=== PATIENT | female | born 1990 | race Caucasian/White ===

== ENCOUNTER → 2019-11-08 17:33 | Outpatient (CLI) | payer OTHER, SELFPAY ==
[2019-11-08 13:32] VITALS: BMI 28.9
[2019-11-08 18:12] LABS: Amphetamine Urine VISTA NEGATIVE (<1000 ng/mL); Barbiturate Urine VISTA NEGATIVE (< 200 ng/mL); Benzodiazepine Urine VISTA NEGATIVE (< 200 ng/mL); Cocaine Urine VISTA NEGATIVE (< 300 ng/mL); Ecstacy Urine VISTA NEGATIVE (< 500 ng/mL); Methadone Urine VISTA NEGATIVE (< 300 ng/mL); PCP Urine VISTA NEGATIVE (< 25 ng/mL); THC Urine VISTA NEGATIVE (< 50 ng/mL); Vista UDS pH Range 6
[2019-11-08 21:10] LABS: Chlamydia Trachomatis by PCR Negative (Negative); Neisserai gonorrhoeae by PCR Negative (Negative); Probe Check PASS; Sample Adequacy Control PASS; Specimen Processing Control PASS
[2019-11-13 10:22] LABS: HPV Reflexed? NOT INDICATED
== END ==
PROVIDERS: PCP Physician Assistant Medical; Referring Provider Obstetrics & Gynecology; Visit Provider Obstetrics & Gynecology
DX: Z12.4 Encounter for screening for malignant neoplasm of cervix (principal); Z34.90 Encounter for supervision of normal pregnancy, unspecified, unspecified trimester
CPT/HCPCS: 80307; 87086; 87491; 87591; 88175; G0145

== ENCOUNTER → 2019-11-14 15:03 | Outpatient (CLI) | payer OTHER, SELFPAY ==
[2019-11-08 13:32] VITALS: BMI 28.9
[2019-11-14 15:30] LABS: Absolute Lymphocyte Count 2.53 X10^3/uL (0.83-4.51); Absolute Neutrophil Count 7.9 X10^3/uL (2.0-7.7); Basophil# 0.04 X10^3/uL; Basophil% 0.3 % (0-1); Eosinophil# 0.21 X10^3/uL; Eosinophils% 1.8 % (0-5); Hematocrit 38.7 % (37-47); Hemoglobin 12.7 g/dL (12.0-15.0); Lymphocyte # 2.53 X10^3/ul (4.0); Lymphocyte % 22.1 % (19-41); Mean Corp Hgb Conc 32.8 g/dL (32-36); Mean Corpuscular Hgb 28.8 pg (27.0-32.0); Mean Corpuscular Volume 87.8 fL (81-99); Mean Platelet Vol. 8.9 fl (6.2-12.0); Monocyte# 0.72 X10^3/uL; Monocyte% 6.3 % (0-10); NRBC Flagged by Analyzer 0 % (0-5); Neutrophil # 7.94 X10^3/uL (2.7-7.7); Neutrophil % 69.2 % (47-70); Platelet Count 302 K/mm3 (150-450); RBC Distribution Width CV 12.2 % (11.6-14.6); RBC Distribution Width SD 39.1 fl (35.1-43.9); Red Blood Count 4.41 M/mm3 (4.2-5.4); White Blood Count 11.5 K/mm3 (4.4-11.0)
[2019-11-14 16:09] LABS: NATERA MAILED SPECIMEN
[2019-11-15 00:26] LABS: Rapid Plasmin Reagin (RPR) NONREACTIVE (NONREACTIVE)
[2019-11-15 09:24] LABS: HIV - WCH Non-Reactive (Nonreactive); Hepatitis B Surface Antigen Non-Reactive (Nonreactive); Hepatitis C Antibody Non-Reactive (Nonreactive); Rubella IgG 46.2 IU/mL
== END ==
PROVIDERS: Obstetrics & Gynecology; PCP Physician Assistant Medical; Referring Provider Nurse Practitioner Women's Health; Visit Provider Nurse Practitioner Women's Health
DX: Z34.81 Encounter for supervision of other normal pregnancy, first trimester (principal)
CPT/HCPCS: 36415; 85025; 86592; 86703; 86762; 86803; 86850; 86900; 86901; 87340

== ENCOUNTER → 2020-03-21 12:04 | Outpatient (CLI) | payer OTHER, SELFPAY ==
[2020-02-29 15:08] VITALS: BMI 28.9
[2020-03-21 13:19] LABS: Absolute Lymphocyte Count 1.93 X10^3/uL (0.83-4.51); Absolute Neutrophil Count 8.9 X10^3/uL (2.0-7.7); Basophil# 0.04 X10^3/uL; Basophil% 0.3 % (0-1); Eosinophils% 1.7 % (0-5); Hematocrit 34.6 % (37-47); Hemoglobin 11.5 g/dL (12.0-15.0); Lymphocyte # 1.93 X10^3/ul (4.0); Lymphocyte % 16.4 % (19-41); Mean Corp Hgb Conc 33.2 g/dL (32-36); Mean Corpuscular Hgb 29.9 pg (27.0-32.0); Mean Corpuscular Volume 90.1 fL (81-99); Mean Platelet Vol. 9.5 fl (6.2-12.0); Monocyte# 0.61 X10^3/uL; Monocyte% 5.2 % (0-10); NRBC Flagged by Analyzer 0 % (0-5); Neutrophil % 75.8 % (47-70); Platelet Count 241 K/mm3 (150-450); RBC Distribution Width CV 12.8 % (11.6-14.6); RBC Distribution Width SD 41.4 fl (35.1-43.9); Red Blood Count 3.84 M/mm3 (4.2-5.4); White Blood Count 11.8 K/mm3 (4.4-11.0)
[2020-03-21 13:41] LABS: Glucose Challenge Gest 1H 50g 128 mg/dL (70-140)
== END ==
PROVIDERS: PCP Physician Assistant Medical; Referring Provider Obstetrics & Gynecology; Visit Provider Obstetrics & Gynecology
DX: Z34.90 Encounter for supervision of normal pregnancy, unspecified, unspecified trimester (principal)
CPT/HCPCS: 36415; 82950; 85025

== ENCOUNTER → 2020-05-16 16:46 | Outpatient (CLI) | payer OTHER, SELFPAY ==
[2020-05-16 15:24] VITALS: BMI 28.9
== END ==
PROVIDERS: PCP Physician Assistant Medical; Referring Provider Obstetrics & Gynecology; Visit Provider Obstetrics & Gynecology
DX: Z34.90 Encounter for supervision of normal pregnancy, unspecified, unspecified trimester (principal)
CPT/HCPCS: 87081

== ENCOUNTER → 2020-06-13 12:24 | Outpatient (CLI) | payer OTHER, SELFPAY ==
[2020-06-10 16:04] VITALS: BMI 28.9
--- NOTE | 2020-06-13 12:25 | US_ITS ---
STUDY: SECOND AND THIRD TRIMESTER OBSTETRICAL ULTRASOUND REASON FOR EXAM: Female, 29 years old post dates -- growth and BPP LMP: 09/01/2019. TECHNIQUE: Transabdominal TECHNICAL QUALITY: Adequate. PRIOR ULTRASOUND: None. FINDINGS: There is a single intrauterine fetus. The fetus is in a cephalic presentation. There is demonstrated cardiac activity with a heart rate of 147 bpm. There is a normal amniotic fluid volume. The largest amniotic fluid pocket measures 3.1 cm. The amniotic fluid index (MELISSA) is 9.8 cm. The placenta is fundal and posterior in location. There are Grade 2 placental changes. The cervix was not visualized due to the head positioning. The adnexal regions are not visualized. BIOMETRY: BPD: 9.1 cm: 37 weeks, 0 days HC: 35.2 cm: 40 weeks, 6 days AC: 37.7 cm: 41 weeks, 4 days FL: 8 cm: 40 weeks, 4 days CI: 75% FL/BPD: 87% FL/HC: FL/AC: 21% HC/AC: 0.93 age by current US: 40 weeks, 0 days. GINETTE by current US: 06/13/2020. Estimated weight: 4175 grams, +/- 618 grams, Age by LMP: 40 weeks, 6 days. GINETTE by LMP: 06/07/2020. IMPRESSION: Single live uterine gestation with mean gestational age of 40 weeks. Electronically Signed: Delroy Reyes, at 14:07 EDT , Service support , STUDY: OBSTETRICAL ULTRASOUND - BIOPHYSICAL PROFILE REASON FOR EXAM: Female, 29 years old post dates -- growth and BPP LMP: 09/01/2019. PRIOR ULTRASOUND: None. TECHNIQUE: Transabdominal TECHNICAL QUALITY: Adequate. FINDINGS: There is a single intrauterine fetus. The fetus is in a cephalic presentation. There is demonstrated cardiac activity with a heart rate of 147 bpm. There is a normal amniotic fluid volume. The largest amniotic fluid pocket measures 3.1 cm. The amniotic fluid index (MELISSA) is 9.8 cm. The placenta is fundal and posterior in location. There are Grade 0 placental changes. Age by LMP: 40 weeks, 6 days. GINETTE by LMP: 06/07/2020. age by current US: 40 weeks, 0 days. GINETTE by current US: Over 2019. BIOPHYSICAL PROFILE: Breathing Movements (FBM): 2 Gross Body Movements (GBM): 2 Tone (FT): 2 Amniotic Fluid Volume (AFV): 2 TOTAL SCORE: / US/OB Limited With Biometrics IMPRESSION: Normal biophysical profile of 04/19. Electronically Signed: Delroy Reyes, at 14:08 EDT , Service support ,
== END ==
PROVIDERS: PCP Physician Assistant Medical; Referring Provider Obstetrics & Gynecology; Visit Provider Obstetrics & Gynecology
DX: O48.0 Post-term pregnancy (principal)
CPT/HCPCS: 76816; 76819

== ENCOUNTER 2020-06-15 01:05 | Outpatient (CLI) | payer OTHER, SELFPAY ==
[2020-06-10 16:04] VITALS: BMI 28.9
[2020-06-15 01:18] VITALS: BP 132/89; PULSE 93
[2020-06-15 01:19] VITALS: TEMP 36.4; O2SAT 98
[2020-06-15 01:20] VITALS: BMI 34.4
--- NOTE | 2020-06-16 08:07 | OB.TRI.PN ---
Progress Notes Date of Service: 06/14/20 Progress Note: Patient presents for triage evaluation secondary to false labor FHT: 130 Moderate variability reactive no decelerations category I tracing Assumption: q 2-5 Contractions Assessment and plan: false labor Reactive NST, reassuring maternal and status patient discharged to home to follow-up as scheduled. See problem list details for additional plan information. Multi Select Codes - Urinary/Genital Urinary/Genital CPT Codes: 99038-13 non-stress test Interp
== END 2020-06-15 03:20 | disposition home or self-care (01) ==
LOC: WPOUT 01:11 → OBT 01:12
PROVIDERS: PCP Physician Assistant Medical; Referring Provider Obstetrics & Gynecology; Visit Provider Obstetrics & Gynecology
DX: O47.9 False labor, unspecified (principal); Z3A.00 Weeks of gestation of pregnancy not specified
CPT/HCPCS: 59025; 59050; 99218; G0378

== ENCOUNTER 2020-06-16 06:57 | Inpatient (IN) | payer OTHER, SELFPAY ==
[2020-06-15 01:20] VITALS: BMI 34.4
[2020-06-16] VITALS (55 sets, daily range): BP systolic 104–138; BP diastolic 56–88; PULSE 61–114; TEMP 36.1–37.5; O2SAT 83–100; BMI 33.0
[2020-06-16] MEDS: Lactated Ringers 1,000 ML 50 ML IV (07:20)
[2020-06-16 07:40] LABS: Absolute Lymphocyte Count 1.77 X10^3/uL (0.83-4.51); Absolute Neutrophil Count 12.2 X10^3/uL (2.0-7.7); Basophil# 0.06 X10^3/uL; Basophil% 0.4 % (0-1); Eosinophil# 0.24 X10^3/uL; Eosinophils% 1.6 % (0-5); Hematocrit 37.1 % (37-47); Hemoglobin 12.2 g/dL (12.0-15.0); Lymphocyte # 1.77 X10^3/ul (4.0); Lymphocyte % 11.6 % (19-41); Mean Corp Hgb Conc 32.9 g/dL (32-36); Mean Corpuscular Hgb 28.2 pg (27.0-32.0); Mean Corpuscular Volume 85.9 fL (81-99); Mean Platelet Vol. 10.1 fl (6.2-12.0); Monocyte# 0.92 X10^3/uL; NRBC Flagged by Analyzer 0 % (0-5); Neutrophil # 12.16 X10^3/uL (2.7-7.7); Neutrophil % 79.8 % (47-70); Platelet Count 244 K/mm3 (150-450); RBC Distribution Width CV 12.8 % (11.6-14.6); RBC Distribution Width SD 39.9 fl (35.1-43.9); Red Blood Count 4.32 M/mm3 (4.2-5.4); White Blood Count 15.2 K/mm3 (4.4-11.0)
--- NOTE | 2020-06-16 08:05 | HP.PCM_ITS ---
- Problem List (1) Influenza vaccination declined Status: Acute Comment: 05/16/2020sc (2) Post-dates Status: Acute Comment: patient wishes to proceed with exp management until 42 weeks. *plan US/NST tuesday, NST tuesday, and IOL by 42 if reassuring testing and no spontaneous labor (3) Status: Acute Qualifiers: Comment: declined carrier. NIPT low risk. ntd declined. 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 coli infection (Acute) Vertigo (Acute) Surgical History Previous back surgery (Acute ~2018) H/O thumb surgery (Resolved) Family History Grandfather Cancer CVA (cerebral vascular accident) Diabetes Father Hypertension Grandmother Diabetes Social History (Updated 06/10/20 @ 16:[address] Earline Goff MD) adopted: No household members: spouse housing: house current occupational status: employed current occupation: [employer] pets and animals: Yes history of recent travel: No sexually active: Yes Smoking Status: Current some day smoker second hand exposure: Yes alcohol intake: current alcohol intake frequency: holidays/special occasions only substance use type: does not use seatbelt use: always do you feel safe at home: Yes additional social history: Jey Gonzalez (Lory-13 Radha-10) Pregancy History 1 Elective abortions Hx Para Spontaneous abortions Hx # Term Pregnancies Ectopic pregnancies Hx # Pregnancies Multiple births # of living children HPI est ob 41w: Details: SHANIQUA HILL is a 29 year old who presents for routine OB visit. OB Visit GINETTE Calculator Estimated Delivery Date Method Current WG Current Estimate 06/07/20 Ultrasound #1 40w 3d Other Estimates 06/20/20 LMP (Certain) 38w 4d Expected Delivery Route/Plan Labor Preferences- CB/BF classes: planning BF class. labor support person: Wilver labor intervention preferences: no specific, wants all baseline interventions and standards of care no pacifiers or sweeties pain management options preferred: epidural cut cord/dad catch: yes : yes PP control planned: [] discussed possible routes of delivery and associated risks: discussed possible delivery modalities and possible indications for each including R/B/A of , VAVD, and CS. questions answered. special requests: denies Specific Issue/Plans flu vaccine: declined tdap vaccine: given 03/21 rhogam: na LARC form signed: declined movement and labor precautions reviewed. Problem list reviewed and updated with the most current plan of care details and appropriate orders placed. Relevant counseling for the gestational age provided. Continue routine care and follow up unless otherwise noted in visit notes/problem list details Initial Weight: 182 lb Date EGA Weight BP Urine Prot Glucose FHR FuHt Pres Dilation Effaced St Visit Note 12/05/19 13w 4d 184 lb 4 oz (+2 lb 4 oz) 122/80 Negative Negative 147 MH-no Vb, LOF. Some nausea but manageable. Reviewed PNL. 01/04/20 17w 6d 186 lb (+4 lb) 120/74 Negative Negative 140 18 SM- no vb lof crmaping, some fm. lost mother in law 1 week ago. grieving appropriately 02/29/20 25w 6d 198 lb (+16 lb) 116/78 Negative Negative 140 26 SM- no vb lof good fm no regular ctx 03/21/20 28w 6d 197 lb (+15 lb) 120/70 Negative Negative 140 28 SM- no vb lof good fm no regular ctx. cbc gct tdap today 04/04/20 30w 6d 204 lb (+22 lb) 112/80 Negative Negative 140 30 SM- no vb lof good fm no regular ctx 04/18/20 32w 6d 202 lb 2 oz (+20 lb 2 oz) 128/74 135 33 SM- no vb lof good fm no regular ctx 05/02/20 34w 6d 204 lb 8 oz (+22 lb 8 oz) 114/72 Negative Negative 135 35 Cephalic Sm- no vb lof good fm no regular ctx 05/16/20 36w 6d 206 lb (+24 lb) 120/74 Negative Negative 135 36 Cephalic 1.5 40 -3 SM- no vb lof good fm no regular ctx gbs today 05/23/20 37w 6d 206 lb (+24 lb) 126/74 135 37 Cephalic 1.5 50 -2 Sm- no vb lof decreased f etal movement the last two days. check nst today 05/30/20 38w 6d 205 lb 8 oz (+23 lb 8 oz) 128/88 Negative Negative 135 38 Cephalic 2 50 -2 GP - no LOF, VB, DFM, ctx . Discussed routes of delivery. 06/04/20 39w 4d 206 lb 8 oz (+24 lb 8 oz) 130/88 Negative Negative 130 39 Cephalic 2.5 50 -2 GP - No LOF, VB, DFM. irr egular ctx. Membranes stripped today. 06/10/20 40w 3d 209 lb (+27 lb) 129/80 135 39 Cephalic 2.5 50 -2 SM- no vb lof good fm no regular ctx discussed IOL vs exp management, wishes to proceed with exp management if reassuring testing ACOG First Trimester First Trimester: Desire for , Alcohol, Tobacco Cessation, Illicit/Recreational Drug/Substance Use, Intimate Partner Violence, Barriers to care, Unstable Housing, Communication Barriers, Environmental/Work Hazards, Anticipated Course of Care, Toxoplasmosis Precations, Use of Any medications, Sexual activity, Exercise, Dental Care, Sauna/Hot tub use, Seat Belt use, Childbirth classes/Hospital facilities, , Travel, Indications for US and Screening for Aneuploidy Second Trimester Second Trimester: Signs and Symptoms of Labor, Selecting a care provider, Reproductive Life Planning, Care Planning, Tobacco Cessation, Depression/Anxiety and Intimate Partner Violence Third Trimester Third Trimester: Pain Management Plans, Labor support person(s), Immediate Larc, Movement Monitoring and Feeding Yes ; discussed Trial of Labor after Counseling or discussed Circumcision preference Diagnostics Diagnostics Diagnostics Glucose 1 Hr 50 gm 128 mg/dL (70-140) 03/21/20 Hgb 11.5 g/dL (12.0-15.0) L 03/21/20 Hct 34.6 % (37-47) L 03/21/20 Details: HIV: Urine Culture: Sequential Screen: NIPT Screen: ROS Const Reports system reviewed and no additional complaints, except as docu Card Reports system reviewed and no additional complaints, except as docu Resp Reports system reviewed and no additional complaints, except as docu GI Reports system reviewed and no additional complaints, except as docu, Reports nausea Reports system reviewed and no additional complaints, except as docu Musc Reports system reviewed and no additional complaints, except as docu Exam Const General: cooperative, healthy appearing, comfortable, anxious HENMT Head: normal to inspection Nose: external nose normal Face and sinus: normal facial exam Neck Neck: normal visual inspection, full ROM, no lymphadenopathy Thyroid: thyroid normal Chest Chest palpation & inspection: normal inspection of the chest Resp Effort & Inspection: normal respiratory effort GI Inspection: normal to inspection Palpation: soft, other (gravid uterus) Other: vertex and appropriate size for gestational age Other: Cervical Exam: Extrem General: pedal edema Assessment & Plan Problems 1. Influenza vaccination declined Z28.21 05/16/2020sc 2. Supervision of normal first Z34.00 PRR GINETTE: 06/07/2020 giorgi Mcmahan BF: Wilver (Lory-13 Radha-10) 3. Z34.90 declined carrier. NIPT low risk. ntd declined. Anatomy normal 4. Post-dates O48.0. patient wishes to proceed with exp management until 42 weeks. *plan US/NST tuesday, NST tuesday, and IOL by 42 if reassuring testing and no spontaneous labor Orders Orders: POC Urinalysis 2 Dip (Clinic) Today OB Limited With Biometrics Today O48.0 Coding Level of Care Code OB Routine Diagnoses Influenza vaccination declined Z28.21 Supervision of normal first Z34.00 Z34.90 Post-dates O48.0 Patient presents IAL, plan expectant management for , pitocin/AROM PRN if needed. Pain management: plans epidural. GBS negative. Management of any complications: none Rubella immune Blood type A+ I have reviewed the [facility] and made any clinically relevant updates. Teresa Macedo M.D.
[2020-06-16] MEDS: 0.9% Saline Lock 10 ML Syringe IV ×2 (10:54→11:40)
[2020-06-16] MEDS: Lactated Ringers 500 ML 999 ML IV ×3 (11:40→19:24)
[2020-06-16] MEDS: fentaNYL-bupivacaine (epidural) 100 ML BAG EPIDURAL ×3 (12:36→21:51)
[2020-06-16] MEDS: Oxytocin 30 units/NS 500 ml 30 UNITS/500 ML IV.SOLN IV (16:21)
[2020-06-16] MEDS: Lactated Ringers 1,000 ML 200 ML IV ×2 (16:24→21:51)
[2020-06-16] MEDS: Ondansetron 4 MG/2 ML Vial IV (19:18)
[2020-06-16] MEDS: Mag Hydrox/Al Hydrox/Simeth 30 ML UDC PO (22:16)
[2020-06-17] VITALS (37 sets, daily range): BP systolic 90–134; BP diastolic 54–85; PULSE 48–102; RESP 15–18; TEMP 36.3–38; O2SAT 18–100
[2020-06-17] MEDS: DiphenhydrAMINE 25 MG Capsule PO (01:28)
[2020-06-17] MEDS: Acetaminophen 500 MG Tablet 1000 MG PO (01:28)
[2020-06-17] MEDS: fentaNYL-bupivacaine (epidural) 100 ML BAG EPIDURAL (02:31)
[2020-06-17] MEDS: Lactated Ringers 1,000 ML 200 ML IV (03:24)
[2020-06-17] MEDS: Oxytocin 30 units/NS 500 ml 30 UNITS/500 ML IV.SOLN 334 UNITS IV (07:02)
--- NOTE | 2020-06-17 07:18 | PCM.OPRPT ---
Problem List (1) Influenza vaccination declined Status: Acute Comment: 05/16/2020sc (2) Post-dates Status: Acute Comment: patient wishes to proceed with exp management until 42 weeks. *plan US/NST tuesday, NST tuesday, and IOL by 42 if reassuring testing and no spontaneous labor (3) Status: Acute Qualifiers: Comment: declined carrier. NIPT low risk. ntd declined. Anatomy normal (4) Supervision of normal first Status: Acute Qualifiers: Comment: PRR GINETTE: 06/07/2020 giorgi Mcmahan BF: Wilver (Lory-13 Radha-10) Vaginal Delivery Maternal Presentation: Active Labor Patient is a 29-year-old at 41 weeks gestation who was admitted in active labor. She required augmentation with rupture of membranes and Pitocin. After 24 hours in labor, she made cervical change to complete dilation. Amniotic Membrane Rupture Type: Artificial Rupture of Membrane time: 1300 Amniotic Fluid Description: Clear Final GINETTE: 06/07/20 Gestational age: 41 Weeks and 3 Days Date of Procedure: 06/17/20 Pre-Operative Diagnosis: Active labor, Suspected III Post-Operative Diagnosis: same Surgery/ Procedure Performed: Spontaneous Vaginal Delivery Type of Anesthesia: Epidural Description of Procedure: Patient began pushing and delivered the head in the VENECIA presentation. The head was delivered atraumatically. No nuchal cord was noted. The anterior and posterior shoulders delivered without complication followed by the rest of the and the infant was placed on the maternal abdomen. Delayed cord clamping was employed for approximately 60 seconds. Cord was clamped and cut and gentle traction was applied to the cord and the placenta delivered spontaneously immediately following it was noted to be intact with three-vessel cord. The perineum and vagina were inspected and a first-degree laceration was noted and repaired in a running fashion using 3-0 Vicryl repeat suture. EBL was 200 cc. Patient and infant tolerated delivery well. Presentation: VENECIA Placental Delivery Description: Spontaneous Placenta Disposition: [facility] Cord Vessel Description: 3 Vessels Cord Entanglement: None Drain: Quintero to straight drain Estimated Blood Loss: 200 cc Infant A gender: Male Episiotomy Description: None Laceration: Perineal Extension/lac, 1st degree Medications given after delivery: IV Pitocin Complications: None Multi Select Codes - Urinary/Genital Urinary/Genital CPT Codes: 71587 Vaginal Delivery [facility]
--- NOTE | 2020-06-17 09:01 | PLAC_PTH ---
PATIENT: SHANIQUA HILL LOC: WP U#:[id number] AGE/SX: 29/F ROOM: WP005 RE06/16/[address]: Dr. Teresa Macedo MD : 1990 BED: 1 DIS: 06/18/2020 SPEC #: [id number] RECD: 06/17/20 09:25 STATUS: VALE JESUS #: [id number] KIET: 06/17/20 09:[address]: Teresa Macedo DEPT: SURGICAL PATHOLOGY RECD BY: Kacie Steward ENTERED: 06/17/20 09:26 SP TYPE: PLACENTA OTHR DR: OLIMPIA Cerda Tissues: Placenta, NOS Procedures: Surgery Specimen Level V HEADER OPERATION: Vaginal delivery PRE-OP DIAGNOSIS: Labor TISSUE SUBMITTED: Placenta MICROSCOPIC DIAGNOSIS Nuñez placenta (677 gm): Umbilical cord - trivascular with acute funisitis. Placental membranes - acute chorioamnionitis and acute deciduitis. Placental disc - acute vasculitis of superficial placental vessels, increased intraparenchymal fibrin plaques and microcalcifications. AM:kalen 06/19/20 MICROSCOPIC DESCRIPTION Slides are reviewed. GROSS DESCRIPTION SPECIMEN: PLACENTA / CLINICAL INFORMATION: A. Weight: 4.14 kg B. Gestational Age: 41 weeks C. Sex: Male PLACENTAL WEIGHT (POST FIXATION): 677 gm PLACENTAL DIMENSIONS: 19.5 x 17.5 x 3 cm PLACENTAL SHAPE: Usual ovoid PLACENTAL WEIGHT FOR GESTATIONAL AGE: Over 99th percentile MEMBRANES - Present A. Insertion: Marginal B. Site of rupture from edge: 4 cm from edge of placental disc C. Color of membrane: Donis-landeros D. Abnormalities: None UMBILICAL CORD - Present A. Color: Donis-landeros B. Insertion: Eccentric C. Length: 25 cm D. Diameter: 1.5 cm E. Number of vessels: Three F. Abnormalities: None PLACENTAL DISC - Present A. Color of surface: Donis-landeros B. surface abnormalities: None C. Maternal cotyledons: Intact with minimal tears D. Attached retro placental clot: No clot E. Cut surface: Dark red and spongy F. Lesions: None G. Separate clot: Absent SECTIONS SUBMITTED: 1. Umbilical cord ( end notched) 2. Umbilical cord, placental end 3. Membrane roll 4. Placental disc, and maternal surfaces 5. Placental disc, and maternal surfaces 6. Placental disc, and maternal surfaces AM:kalen 06/18/20 TC:2 CPT: 18525
[2020-06-17] MEDS: Ibuprofen 600 MG Tablet PO ×2 (16:24→23:06)
[2020-06-18 04:45] VITALS: BP 107/60; PULSE 59; RESP 16; TEMP 36.3
[2020-06-18] MEDS: Ibuprofen 600 MG Tablet PO (06:30)
--- NOTE | 2020-06-18 07:23 | PCM.PN.OB ---
Subjective: Patient doing well without complaints. Tolerating PO. Ambulating and voiding without difficulty. Breast feeding well. Denies chest pain, shortness of breath, calf pain/swelling, fevers, chills, lightheadedness. - Physical Exam Vitals/I&O's: Vital Signs Temp Pulse Resp BP Pulse Ox 97.3 F L 59 L 16 107/60 96 06/18/20 04:45 06/18/20 04:45 06/18/20 04:45 06/18/20 04:45 06/17/20 23:01 Oxygen Delivery Method Room Air Weight: 208 lb Body Mass Index (BMI) 33.0 Intake and Output for Last 24 Hours 06/16/20 06/17/20 06/18/20 23:59 23:59 23:59 Intake Total 4167.01 / 4167.01 2659.02 / 2659.02 Output Total 1800 / 1800 1999 Balance 2367.01 / 2367.01 659.02 / 659.02 General: Alert, Oriented x3, Cooperative HEENT: Atraumatic, PERRLA, EOMI, Normocephalic Oral: Moist Mucosa Neck: Supple, No JVD, Negative Carotid Bruits Lungs: Clear to auscultation, Normal air movement Cardiovascular: Regular rate, No murmurs Abdomen: Bowel Sounds Present, Soft, Non Tender Extremities: No edema, Capillary Refill Less than 3 Seconds, No Calf Tenderness Skin: No rashes, No breakdown Neurological: Cranial nerves II-XII grossly intact, Neuro grossly intact Psych/Mental Status: Normal Affect, Appropriate Current Medications Acetaminophen (Tylenol) 1,000 mg PO Q8H PRN PRN PRN Reason: Pain Score 1-3/10 Bisacodyl (Dulcolax) 10 mg RECTAL UD PRN PRN Reason: If no BM Dibucaine (Dibucaine) 1 applic TOPICAL TID PRN PRN; Protocol PRN Reason: Discomfort Hydrocortisone (Hytone) 1 applic TOPICAL TID PRN PRN; Protocol PRN Reason: Discomfort Ibuprofen (Motrin) 600 mg PO Q6H PRN PRN PRN Reason: Pain Score 1-3/10 Last Admin: 06/18/20 06:30 Dose: 600 mg Documented by: Methylergonovine Maleate (Methergine) 0.2 mg IM X1 PRN PRN Reason: Excess bleeding/uterine atony Ondansetron HCl (Zofran) 4 mg IV Q4H PRN PRN PRN Reason: Nausea Oxycodone HCl (Oxyir) 5 - 10 mg PO Q4H PRN PRN PRN Reason: Pain Score 4-10/10 Senna/Docusate Sodium (Senokot-S, Tigist-Colace) 1 - 2 tablet PO DAILY PRN PRN PRN Reason: Constipation Simethicone (Mylicon) 80 mg PO PCHS PRN PRN Reason: Indigestion/Stomach pain Last Admin: 06/17/20 16:24 Dose: 80 mg Documented by: Sodium Chloride () 5 - 15 ml IV UD PRN PRN Reason: SALINE FLUSH Medical Necessity - Tobacco Use Smoking Status: Never smoker Assessment/Plan All Active Problems (Last Reviewed 06/10/20 @ 16:04 by Rosalia Salazar) Post-dates (Acute) Influenza vaccination declined (Acute) Supervision of normal first (Acute) (Acute) s/p PPD #1 1. routine post delivery care 2. breast feeding- support given 3. rh positive 4. rubella immune
[2020-06-18 08:29] VITALS: BP 137/76; PULSE 96; RESP 14; TEMP 36.8
--- NOTE | 2020-06-18 11:13 | NURSING ---
Circumcision care taught to mother and father, both verbalized understanding
[2020-06-19 14:50] LABS: Pathology Specimen OB SEE PATHOLOGY REPORT
== END 2020-06-18 14:05 | disposition home or self-care (01) | DRG 807 ==
LOC: WPOUT 06:57 → WP 06:57
PROVIDERS: Pediatrics; Admitting Provider Obstetrics & Gynecology; PCP Physician Assistant Medical; Referring Provider Obstetrics & Gynecology; Visit Provider Obstetrics & Gynecology
DX: O48.0 Post-term pregnancy (principal); O70.0 First degree perineal laceration during delivery; O99.334 Smoking (tobacco) complicating childbirth; F17.200 Nicotine dependence, unspecified, uncomplicated; Z28.21 Immunization not carried out because of patient refusal; Z3A.41 41 weeks gestation of pregnancy; Z37.0 Single live birth
CPT/HCPCS: 59025; 59050; 85025; 86850; 86900; 86901; 88307; 99218; J7120; 90686; A4216; G0378; J2405

== ENCOUNTER 2020-10-14 05:55 | Day surgery (SDC) | payer OTHER, SELFPAY ==
[2020-10-02 09:48] VITALS: BMI 28.6
--- NOTE | 2020-10-13 10:54 | EKG12_ITS ---
Test Reason : PRE OP Blood Pressure : / mmHG Vent. Rate : 056 BPM Atrial Rate : 056 BPM P-R Int : 164 ms QRS Dur : 096 ms QT Int : 402 ms P-R-T Axes : 047 002 008 degrees QTc Int : 387 ms Sinus bradycardia with marked sinus arrhythmia Otherwise normal ECG Confirmed by YESENIA ALVARADO, MAKAYLA ([id number]), editor city [place] CAPELLAN ([id number]) on 10/14/2020 8:37:55 AM Referred By: Miguel Dietz Confirmed By:MAKAYLA PATTERSON MD
[2020-10-14] VITALS (7 sets, daily range): BP systolic 123–139; BP diastolic 67–82; PULSE 54–84; RESP 14–18; TEMP 35.7–36.7; O2SAT 95–100; BMI 30.3
[2020-10-14 06:19] LABS: Internal QC Validated? YES +Cl - CLEAR BKGD; Pregnancy, Urine Negative Negative
[2020-10-14] MEDS: Lactated Ringers 1,000 ML 100 ML IV ×2 (06:40→08:50)
--- NOTE | 2020-10-14 06:54 | HP_ITS ---
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 coli infection (Acute) Surgical History Previous back surgery (Acute ~2018) H/O thumb surgery (Resolved) Family History Grandfather Cancer CVA (cerebral vascular accident) Diabetes Father Hypertension Grandmother Diabetes Social History (Updated 10/03/20 @ 15:[address] Miguel Dietz MD) adopted: No household members: spouse housing: house current occupational status: employed current occupation: [employer] pets and animals: Yes history of recent travel: No sexually active: Yes Smoking Status: Never smoker second hand exposure: Yes alcohol intake: current alcohol intake frequency: holidays/special occasions only substance use type: does not use seatbelt use: always do you feel safe at home: Yes additional social history: Jey Gonzalez (Lory-13 Radha-10) HPI HPI HPI: SHANIQUA HILL, is a 30 F who presents to the office today for HPI HPI Surgical H&P: Yes HPI: SHANIQUA HILL, is a 30 F who presents to the office today for right upper quadrant pain. The patient reports that she has right upper quadrant pain after eating associated with nausea and it radiates to the back into the right shoulder. The patient does not have any nausea or vomiting at this time but she says that after eating she occasionally has nausea. She has no fevers or chills. ROS General General: No weight change, appetite, fatigue, colon cancer, breast cancer or weakness HEENT HEENT: No difficulty swallowing, eye injury, eye surgery, swollen glands or hoarseness Endo Endocrine: No thyroid disease, diabetes mellitus, thyroid cancer, Hair loss, heat intolerance or cold intolerance Skin Skin: No rash or changing moles Musc Musculoskeletal: No back problems, arthritis, rheumatoid arthritis, gout or joint pain Cardio Cardiovascular: No murmur, pacemaker, heart disease, atrial fibrillation, high blood pressure, heart attack, heart stent, palpitations, shortness of breat with exertion or chest pain Psych Psychiatric: No depression, anxiety or hearing voices Resp Respiratory: No shortness of breath, No sleep apnea, No cough, No COPD, No asthma, No emphysema, No wheezing Gastro Gastrointestinal: Yes abdominal pain, Yes nausea or vomiting, Yes diarrhea, No constipation, No blood in stool, No acid reflux, No hemorrhoids, No ulcers, Yes gallbladder problem, No black,tarry stools Steve Hematologic: No blood thinners, No blood disorders, No bleeding, No anemia, No blood clots Neuro Neurologic: No system reviewed and no additional complaints, except as docu, No as per HPI, No abnormal walking, No abnormal hearing, No abnormal movements, No abnormal speech, No behavioral changes, No burning sensations, No confusion, No seizure-like activity, No unsteadiness, No dizziness, No localized weakness, No frequent falls, No headache(s), No lack of coordination, No loss of vision, No memory loss, No numbness, No other visual disturbances, No radiating pain, No restless legs, No sensory deficit, No fainting, No tingling, No tremor(s), No weakness, No other Exam Const General: cooperative Orientation: alert, oriented x3 HENMT Head: normal to inspection Ears: hearing grossly normal bilaterally Eyes General: appearance normal, both eyes and all related structures Visual Meek: normal visual meek by confrontation Neck Neck: normal visual inspection Chest Chest palpation & inspection: normal inspection of the chest Resp Effort & Inspection: normal respiratory effort Auscultation: clear to auscultation bilaterally Cardio Rate: regular rate Rhythm: regular rhythm Heart Sounds: no murmurs GI Inspection: non-distended Palpation: soft, nontender Musc Cervical Spine: normal cervical lordosis, cervical ROM normal Skin General: no rashes or lesions noted Neuro General: alert, oriented x3 Cranial Nerves: CN's II-XI intact bilaterally Cognition: normal cognition Extrem General: normal to inspection, full ROM Psych Appearance: grossly normal Affect: normal affect Assessment & Plan Problems 1. Biliary dyskinesia K82.8 Plan The patient had ultrasound which showed no gallstones but she did have a HIDA scan which showed biliary dyskinesia with an ejection fraction of 5%. The patient's symptoms are suggestive of biliary colic and biliary dyskinesia. I did recommend laparoscopic cholecystectomy. I discussed the procedure in detail with the patient. I discussed the risks, benefits, and alternatives of the procedure. I discussed the risks including but not limited to bleeding, infection, injury to surrounding organs such as the liver, bile duct, bowels. I did discuss the possibility of having to convert to an open procedure as well as the possibility that if any injuries occurred this may necessitate further surgery at a tertiary care center. We discussed the current risks associated with COVID-19. While it is understood that there is a community spread of COVID-19, the risk of saba COVID-19 while at [facility] ([facility]) is very low; however, the risk cannot be completely mitigated because of the community spread of the disease. We discussed in detail the risk of exposure to and/or potential harm posed by the COVID-19 virus with having a surgery/procedure at this time versus the risk of delaying the surgery/procedure. It is not possible to know either the risk of delaying the surgery or procedure or chance of getting an infection with perfect accuracy, but a joint decision was made to proceed at this time with the scheduled surgery/procedure as indicated on the consent form. Patient was notified that we will need to comply with any screening or testing [facility] wishes to perform or that surgery may be delayed for any positive results. Miguel Dietz MD Pager: [facility] [address] [place] [address], [address] [place] [address] Office: Coding Level of Care Code Off vis,new,level 4 Diagnoses Biliary dyskinesia K82.8 I have re-examined the patient. There are no clinical changes since date of exam.
--- NOTE | 2020-10-14 07:25 | RAD_ITS ---
STUDY: INTRAOPERATIVE INTRA CHOLANGIOGRAM. REASON FOR EXAM: Female, 30 years old. ABD PAIN FLUOROSCOPY TIME (if supplied): ( 12.4 seconds ) minutes/seconds. A cine loop of 49 images were submitted. TECHNIQUE: Intraoperative cholangiogram was performed by the surgeon. Imaging was submitted. COMPARISON: None. FINDINGS: The visualized intrahepatic biliary ducts are unremarkable. The common bile duct is not dilated. No intraluminal filling defect is seen. There is free flow of contrast into the duodenum. RAD/Cholangiogram/ O R,Initial IMPRESSION: Unremarkable intraoperative cholangiogram. Electronically Signed: Delroy Reyes MD at 9:08 EST , Service support ,
[2020-10-14] MEDS: Cefotetan 2 GM in 0.9% NS 100 ML IV (07:28)
--- NOTE | 2020-10-14 07:30 | GALL_PTH ---
PATIENT: SHANIQU[place] [facility] [id number] AGE/SX: 30/F ROOM: RE10/14/[address]: Dr. Miguel Dietz MD : 1990 BED: DIS: 10/14/2020 SPEC #: [id number] RECD: 10/14/20 09:31 STATUS: VALE REKisha #: [id number] KIET: 10/14/20 07:[address]: Miguel Dietz DEPT: SURGICAL PATHOLOGY RECD BY: Sondra Bhakta ENTERED: 10/14/20 11:01 SP TYPE: WENDY LOGAN DR: OLIMPIA Cerda Tissues: Gallbladder, NOS Procedures: Surgery Specimen Level III HEADER OPERATION: Laparoscopic cholecystectomy with IOC PRE-OP DIAGNOSIS: Biliary dyskinesia TISSUE SUBMITTED: Gallbladder MICROSCOPIC DIAGNOSIS Gallbladder, cholecystectomy: Cholesterolosis and chronic cholecystitis. AM:kalen 10/15/2020 MICROSCOPIC DESCRIPTION Slides are reviewed. GROSS DESCRIPTION Received is one container labeled with the patient's name and designated gallbladder. The specimen consists of a gallbladder measuring 8.5 x 3 x 3 cm. The external surface is smooth and glistening. Focally, it is granular, hemorrhagic and contains cautery artifact. The lumen of the gallbladder contains yellow-green mucoid bile and no calculi. The mucosa is bile-stained and without any mass lesions. The gallbladder wall averages 0.1 cm in thickness and is free of mass lesions. Plate Maker sections of the gallbladder and the cystic duct at margin of resection are submitted in one cassette. / AM:kalen 10/14/20 TC:3 CPT: 94654
--- NOTE | 2020-10-14 08:32 | OP.PCM_ITS ---
Problem List (1) Biliary dyskinesia Status: Acute Report of Operation Date of Procedure: 10/14/20 Pre-Operative Diagnosis: Biliary dyskinesia Post-Operative Diagnosis: Same Surgery/Procedure Performed:: Laparoscopic cholecystectomy with cholangiogram Specimen's removed: Gallbladder and contents Description of Procedure: After obtaining informed consent patient was brought back to the operating room. General anesthesia was induced. The abdomen was prepped and draped in usual sterile fashion. A small midline incision was made superior to the umbilicus and deepened to the level of fascia. The fascia was elevated and incised. Next the peritoneum was elevated and incised in the same fashion. Finger sweep was performed and the Henao trocar was placed into the abdomen. The balloon was inflated. The abdomen was inflated to 15 mmHg. Next a camera was introduced into the abdomen and the abdomen was inspected. Next under direct visualization three 5-mm ports were placed one subxiphoid and 2 subcostal. Next the gallbladder was elevated and retracted toward the right shoulder. The peritoneum was stripped from the gallbladder. The infundibulum was located and retracted laterally. Next the triangle of Calot was dissected and the cystic duct and cystic artery were identified. Cholangiograms were performed. The Magallanes clamp was used to clamp across the infundibulum and the catheter needle was inserted into the gallbladder. Under fluoroscopy contrast was instilled into the gallbladder and the common duct, cystic duct as well as proximal hep atic ducts were identified. There was good filling of the duodenum. There were no filling defects noted in the common bile duct. The clamp was removed as well as the needle and the infundibulum was grasped once more. Three hemolock clips were placed across the cystic duct. The cystic duct was then divided leaving 2 clips on the stump. The cystic artery was clipped and divided in the same [facility] ion. The hook cautery was then used to take the gallbladder off of the gallbladder bed. Hemostasis was obtained. Gallbladder fossa was irrigated and no active bleeding or bile leakage was noted. Next the camera was introduced in the subxiphoid port. An Endopouch bag was placed through the umbilical port and the gallbladder was placed into it. The gallbladder was then removed through the umbilical incision. The camera was then reinserted through the umbilical port. The gallbladder fossa was inspected once more and noted to be hemostatic with no leaking bile. The abdomen was suctioned dry. The 5 mm ports were removed under direct visualization. The umbilical port was then removed and the air was removed from the abdomen. Next using an 0 Vicryl suture the umbilical fascia was closed in a [id number] fashion. The umbilical port site was irrigated local anesthetic was administered to all the incisions. All the incisions were closed with interrupted subcuticular 4-0 Monocryl sutures followed by Steri-Strips and dressings. The patient was awoken and taken to PACU in stable condition. - Admit VTE Documentation VTE Mechan Device Prophylaxis: SCD's
--- NOTE | 2020-10-14 08:34 | DCINST_ITS ---
Discharge Diet: Light diet - advance as tolerated Discharge Activity: Return to Normal Activity, May Not Drive - for 2-3 days or while taking narcotic pain medicataions., - - Do not drive, work heavy equipment or sign legal documents for 24 hours. May shower in (days): 1 - with the bandage in place. Lifting Restrictions: 20 lbs for 2 weeks Additional Activity Instructions:: Pain medication may cause nausea. You should typically eat light foods as you take your pain medications. Pain medication may also cause constipation. If this is a problem for you, please discuss with your doctor. Call your doctor if your incision/area has: Continuous Slow Oozing, Sudden Increased Bleeding, Increased Pain/ Swelling, Increased Redness, Foul Smelling Discharge, Fever of 101 or Higher Call your doctor if you observe: Fever of 101 or Higher Suture Line Care: Avoid Pulling/Pushing, Avoid Pinching/Bending Additional Dressing/Incision Instructions:: Leave operative bandaids on for 2 days. When you remove dressing, leave Steri-Strips on until your follow-up appointment, or until the Steri-Strips fall off on their own. Allergies/Adverse Reactions: Allergies No Known Allergies Allergy (Verified 10/02/20 09:47) Medications to take at Discharge vit,calcium no.40-iron fum 27 mg iron-folate no.1 1 mg tablet 1 tab PO DAILY 11/08/19 Oxycodone HCl/Acetaminophen [Percocet 5-325 mg Tablet] 1 - 2 tab PO Q6H PRN PRN 5 Days #30 tablet 10/14/20 The following prescriptions were given: Oxycodone HCl/Acetaminophen [Percocet 5-325 mg Tablet] 1 - 2 tab PO Q6H PRN PRN 5 Days #30 tablet PRN Reason: Pain Score 4-10/10 Transmission Status: Sent to [facility] Primary Care Physician: Kailee Mahmood PA [Primary Care Provider] - Test Results: Test results from this visit will be discussed in further detail at your follow- up appointment, if applicable. Please Follow Up With: Miguel Dietz MD When: Please call to schedule 2 week follow up appointment. [phone]
[2020-10-14] MEDS: oxyCODONE 5 MG Tablet PO (09:20)
== END 2020-10-14 11:12 | disposition home or self-care (01) ==
LOC: SDC 05:56 → AC 05:56
PROVIDERS: Anesthesiology; PCP Physician Assistant Medical; Referring Provider Surgery; Visit Provider Surgery
PROC: (CPT 47610; principal; 2020-10-14 07:10)
DX: K81.1 Chronic cholecystitis (principal); K82.8 Other specified diseases of gallbladder
CPT/HCPCS: 00790; 47563; 74300; 76000; 81025; 87426; 88304; 93005; C9803; J7120; J2405

== ENCOUNTER 2020-11-03 09:25 | Emergency (ER) | payer OTHER, SELFPAY ==
[2020-10-14 06:18] VITALS: BMI 30.3
[2020-11-03 09:27] VITALS: BP 151/100; PULSE 76; RESP 18; TEMP 35.5; O2SAT 100; BMI 30.9
--- NOTE | 2020-11-03 09:41 | CT_ITS ---
STUDY: CT BRAIN WITHOUT CONTRAST REASON FOR EXAM: Female, 30 years old. HEADACHE, VISION CHANGES, NECK PAIN, ARM TINGLING RADIATION DOSAGE (If Supplied By Facility): CTDIvol = ( 44.99 ) mGy, DLP = ( 779.24 ) mGycm TECHNIQUE: Transaxial CT imaging of the brain was performed without administration of intravenous contrast material. Individualized dose optimization techniques were used for this CT. COMPARISON: No relevant priors. FINDINGS: Normal soft tissue structures. Normal calvarium. Normal size ventricles and extra-axial spaces for the patient''s age. Normal white matter tracts of the cerebral hemispheres. Normal basal ganglia and thalami. Normal brainstem. Normal cerebellum. There is no intracranial hemorrhage. There are no findings of an acute ischemic infarction. Normal visualized paranasal sinuses. CT/Brain/Head without Contrast IMPRESSION: Normal unenhanced CT scan of the brain. Electronically Signed: Edmund Aldana MD at 10:18 EST Tel , Service support ,
--- NOTE | 2020-11-03 09:41 | CT_ITS ---
STUDY: CT CERVICAL SPINE WITHOUT CONTRAST REASON FOR EXAM: Female, 30 years old. HEADACHE, VISION CHANGES, NECK PAIN, ARM TINGLING RADIATION DOSAGE (If Supplied By Facility): CTDIvol = ( 27.12 ) mGy, DLP = ( 567.29 ) mGycm TECHNIQUE: High resolution transaxial imaging was performed without contrast material. Sagittal and coronal images were reconstructed. Individualized dose optimization techniques were used for this CT. COMPARISON: None FINDINGS: Normal craniovertebral junction. Normal anterior atlantoaxial articulation. Normal odontoid process. There is straightening of the normal cervical lordosis. Normal vertebral bodies and posterior osseous elements. C2-3: Normal endplates. Normal disc height and morphology. Normal central canal and intervertebral neuroforamina. C3-4: Normal endplates. Normal disc height and morphology. Normal central canal and intervertebral neuroforamina. C4-5: Normal endplates. Normal disc height and morphology. Normal central canal and intervertebral neuroforamina. C5-6: Normal endplates. Normal disc height and morphology. Normal central canal and intervertebral neuroforamina. C6-7: Normal endplates. Normal disc height and morphology. Normal central canal and intervertebral neuroforamina. C7-T1: Normal endplates. Normal disc height and morphology. Normal central canal and intervertebral neuroforamina. 2 cm nodule the left lobe of the thyroid gland and correlation with thyroid ultrasound is recommended. CT/Spine Cervical without Contras IMPRESSION: 1. No acute fracture or subluxation. 2. Straightening of the normal lordotic curvature which may be secondary to muscular spasm. 3. 2 cm nodule the left lobe of the thyroid gland and correlation with thyroid ultrasound is recommended. Electronically Signed: dEmund Aldana MD at 10:24 EST Tel , Service support ,
--- NOTE | 2020-11-03 10:03 | ED.VIS.GEN ---
History of Present Illness Chief Complaint: Other, Pain/Inj Informant: Patient Onset: Weeks Context: Gradual Onset Timing: Intermittent Current Severity: Moderate Maximum Severity: Moderate Narrative: Patient is an otherwise healthy 30-year-old female presents to the emergency department with multiple symptoms. She states for the past 2-1/2 months, she has had intermittent neck pain. She states that she was sleeping with her in a chair. She states she woke up with pain in the right side of her neck. Since then, she will intermittently have tingling in her right arm. She states that it is most in her right fourth and fifth fingers. She states she will take ibuprofen and will improve. She is also been having intermittent blurred vision in her right eye. She denies any visual loss. She states that just seems like it will be hazy from time to time. There is no family history of MS. She denies any head trauma. She denies any fevers or chills. She denies any weakness of the arm, mostly paresthesias. Prior similar symptoms: No Recent Illness/Hospitalization: Yes Past Medical History - Allergies and Home Meds Allergies/Adverse Reactions: Allergies No Known Allergies Allergy (Verified 11/03/20 09:27) Primary Care Physician: Kailee Mahmood PA [Primary Care Provider] - Prior records reviewed: Yes Past Medical History: None Surgical History: colectomy Smoking Status: Former smoker Review of Systems General: Denies: Chills, Fever, Sweats Eyes: Reports: Blurred vision - right. Denies: Visual changes - bilaterally, Diplopia ENT: Denies: Rhinorrhea, Sore throat Cardiovascular: Denies: Chest pain, Palpitations Respiratory: Denies: Dyspnea, Cough, Dyspnea on exertion Gastrointestinal: Denies: Abdominal pain, Nausea, Vomiting, Diarrhea, Melena, Hematochezia Genitourinary: Denies: Dysuria, Hematuria, Frequency Musculoskeletal: Reports: Neck pain. Denies: Back pain, Extremity Pain Skin: Denies: Rash, Wounds Neurological: Denies: Headache, Weakness, Numbness Physical Exam Vital Signs/Narrative: Vital Signs Temp Pulse Resp BP Pulse Ox 11/03/20 09:27 96 F L 76 18 151/100 H 100 Inital Vital Signs reviewed: Yes General: Well nourished, Well developed, No Acute Distress Head: Normocephalic, Atraumatic Eyes: Perrl, EOMI ENT: Moist mucous membranes, No rhinorrhea Neck: Supple, Nontender Cardiovascular: Regular rate, Regular rhythm, No murmurs Respiratory: No distress, CTA bilaterally, Chest nontender Abdomen: Soft, Nontender, Nondistended, Normal bowel sounds Back: Nontender, Normal Inspection Extremities: Nontender, No edema Skin: Normal color, No rash Neurological: Alert, Oriented x3, Cranial nerves II-XII grossly intact, Normal Strength, Normal Sensation Psychological: Normal affect, Normal Mood Diagnostic/Tx/Re-eval Clinical Impression(s) from Imaging Studies Brain CT 11/03/20 09:41 IMPRESSION: Normal unenhanced CT scan of the brain. Electronically Signed: Edmund Aldana MD at 10:18 EST Tel , Service support , Cervical Spine CT 11/03/20 09:41 IMPRESSION: 1. No acute fracture or subluxation. 2. Straightening of the normal lordotic curvature which may be secondary to muscular spasm. 3. 2 cm nodule the left lobe of the thyroid gland and correlation with thyroid ultrasound is recommended. Electronically Signed: Edmund Aldana MD at 10:24 EST Tel , Service support , Abnormal Lab Results 11/03/20 11/03/20 10:45 10:45 WBC 7.8 RBC 5.02 Hgb 14.1 Hct 43.1 MCV 85.9 MCH 28.1 MCHC 32.7 RDW Std Deviation 37.2 RDW Coeff of Roxanna 11.9 Plt Count 394 MPV 8.7 Immature Gran % (Auto) 0.300 Neut % (Auto) 73.7 H Lymph % (Auto) 20.0 [place] % (Auto) 4.2 Eos % (Auto) 1.0 Baso % (Auto) 0.8 Absolute Neuts (auto) 5.8 Absolute Lymphs (auto) 1.56 Nucleated RBC % 0 Sodium 141 Potassium 4.0 Chloride 109 H Carbon Dioxide 27.0 Anion Gap 5 BUN 15 Creatinine 0.75 Estim Creat Clear Calc 102.68 Est GFR (MDRD) Af Amer 116 Est GFR (MDRD) Non-Af 96 BUN/Creatinine Ratio 20.0 Glucose 100 Calcium 9.4 Total Bilirubin 0.40 AST 17 ALT 36 Alkaline Phosphatase 135 H Total Protein 8.3 H Albumin 4.0 Globulin 4.3 H Albumin/Globulin Ratio 0.9 - Medical Decision Making Patient presents with 2-1/2 months of intermittent arm tingling and neck pain. She states for the past 6 weeks, she is also had intermittent blurry vision, mostly in the right eye. There is been no visual loss. My suspicion is that this is a separate process. Patient has an NIH of 0. She has no weakness of the upper extremity. She has normal reflexes. I did obtain noncontrast head CT and CT of the C-spine. Both were unremarkable for acute process. She does have a small thyroid nodule, but no acute inflammatory process within the spine. Screening labs are unremarkable. The patient has had prior lumbar surgery. She does have an existing neurosurgeon. I did discuss outpatient follow-up. I also entertain the thought of MS, but the patient has not had a visual field loss. I do feel that outpatient MRI of both her head and neck would be reasonable. The patient is comfortable with this plan of care. She is going to follow-up with her neurosurgeon. She will continue anti-inflammatories. She will be discharged home. Impression 1. Right arm paresthesias secondary to cervical impingement ED Disposition - Plan for ED Patient: Instructions: ED Radiculopathy, Cervical Referrals: Kailee Mahmood PA [Primary Care Provider] -
[2020-11-03 10:47] VITALS: BP 165/92; PULSE 77; RESP 18; O2SAT 100
[2020-11-03] MEDS: 0.9% Normal Saline 1,000 ML 1000 ML IV (10:47)
[2020-11-03 10:54] LABS: Absolute Lymphocyte Count 1.56 X10^3/uL (0.83-4.51); Absolute Neutrophil Count 5.8 X10^3/uL (2.0-7.7); Basophil# 0.06 X10^3/uL; Basophil% 0.8 % (0-1); Eosinophil# 0.08 X10^3/uL; Hematocrit 43.1 % (37-47); Hemoglobin 14.1 g/dL (12.0-15.0); Lymphocyte # 1.56 X10^3/ul (4.0); Mean Corp Hgb Conc 32.7 g/dL (32-36); Mean Corpuscular Hgb 28.1 pg (27.0-32.0); Mean Corpuscular Volume 85.9 fL (81-99); Mean Platelet Vol. 8.7 fl (6.2-12.0); Monocyte# 0.33 X10^3/uL; Monocyte% 4.2 % (0-10); NRBC Flagged by Analyzer 0 % (0-5); Neutrophil # 5.76 X10^3/uL (2.7-7.7); Neutrophil % 73.7 % (47-70); Platelet Count 394 K/mm3 (150-450); RBC Distribution Width CV 11.9 % (11.6-14.6); RBC Distribution Width SD 37.2 fl (35.1-43.9); Red Blood Count 5.02 M/mm3 (4.2-5.4); White Blood Count 7.8 K/mm3 (4.4-11.0)
[2020-11-03 11:10] LABS: ALB/GLOB Ratio 0.9 RATIO (0.9-2.4); AST(SGOT) 17 U/L (15-37); Alanine Aminotransfer ALT/SGPT 36 U/L (13-56); Alkaline Phosphatase 135 U/L (45-117); Anion Gap 5 (5-15); BUN 15 mg/dL (7-18); Calcium,Total 9.4 mg/dL (8.5-10.1); Chloride 109 mmol/L (98-107); Creatinine, Serum 0.75 mg/dL (0.55-1.02); EST Glomerular Filtration Rate 96 mL/min (>60); Est Glom Filt Rate - Afr Amer 116 mL/min (>60); Estimated Creatinine Clearance 102.68 ml/min; Globulin 4.3 g/dL (2.2-4.2); Glucose 100 mg/dL (74-106); Protein, Total 8.3 g/dL (6.4-8.2); Sodium Level 141 mmol/L (136-145)
[2020-11-03 11:47] VITALS: BP 146/86; PULSE 73; RESP 17; O2SAT 100
--- NOTE | 2020-11-03 11:48 | ED.RN ---
IV DC'ED, CATHETER INTACT, SMALL GAUZE DRESSING PLACED. DISCHARGE INSTRUCTIONS GIVEN TO AND REVIEWED WITH PATIENT, PATIENT DENIES QUESTIONS OR CONCERNS AND VOICES UNDERSTANDING OF DISCHARGE INSTRUCTIONS. PT AMBULATES OUT OF ROOM WITHOUT DIFFICULTY.
== END 2020-11-03 11:48 | disposition home or self-care (01) ==
LOC: ED 10:06
PROVIDERS: Emergency Provider Emergency Medicine; PCP Physician Assistant Medical
DX: R20.2 Paresthesia of skin (principal); H53.8 Other visual disturbances; M54.2 Cervicalgia; E04.1 Nontoxic single thyroid nodule; Z87.891 Personal history of nicotine dependence; Z90.49 Acquired absence of other specified parts of digestive tract
CPT/HCPCS: 70450; 72125; 80053; 85025; 96360; 99284; J7030

== ENCOUNTER → 2020-12-15 08:17 | Outpatient (CLI) | payer OTHER, SELFPAY ==
[2020-12-11 14:59] VITALS: BMI 30.2
--- NOTE | 2020-12-15 08:20 | US_ITS ---
STUDY: Neck soft tissue ultrasound REASON FOR EXAM: Female, 30 years old. Thyroid cancer -- attn. Bilateral central and lateral lymph nodes TECHNIQUE: Ultrasound evaluation of the neck soft tissue ultrasound was performed with real-time and grayscale imaging. This is not a thyroid gland evaluation. COMPARISON: 11.03.2020 CT cervical spine without contrast FINDINGS: There are multiple lymph nodes demonstrated in the regions of concern was secured to have fairly thin bird and fatty infiltrated centers compatible benign lymph nodes. However the one in the right side measuring 2.3 x 1.5 x 0.9 cm has a thickened cortex, and has a low fatty center.. There are multiple lymph nodes in both sides of the neck. In the area described as zone 2 there is 1.6 x 0.9 to 0.6 cm, 1.5 x 2.3 x 0.9, and 1.8 x 1.6 x 0.7 cm lymph node. An 751.1 x 1.1 x 0.3, 1.1 x 0.7 x 0.3 cm. On the left side described as zone 2 there is a 1.4 x 1.0 x 0.5, 2.8 x 1.5 x 0.7, zone 3, 3.0 x 1x 1.5 x 0.8, zone 5, 0.9 x 0.8 x 0.4 and 1.7 x 1.5 x 0.5 cm. Bordering the left side of the thyroid there is a solid-appearing mass with a hyperechoic center and a hypoechoic periphery which may represent a large lymph node and/or thyroid mass. There is an additional mass within the left thyroid lobe bordering the left thyroid with a hypoechoic periphery and hyperechoic solid center with increased vascularity suspicious for a thyroid mass. The noted this is not a thyroid evaluation. When compared to their recent CT scan there is a large low attenuating mass within the infra aspect of the left thyroid lobe that matches this larger mass seen on ultrasound. US/Head/Neck Soft Tissue IMPRESSION: Bilateral neck soft tissue lymph nodes. Recommend dedicated thyroid ultrasound for further evaluation. This is a study of lymph nodes one of which appears to have a thickened cortex on the right may be reactive versus metastatic depending on the pathology associated with the partially visualized thyroid on this study which appears enlarged on the recent CT and contains a dominant mass on the left side of the thyroid. Large dominant vascular masses raise concern for neoplasm. Electronically Signed: Soledad Tony MD at 5:05 EDT Tel , Service support ,
== END ==
PROVIDERS: PCP Physician Assistant Medical; Referring Provider Surgery; Visit Provider Surgery
DX: C73 Malignant neoplasm of thyroid gland (principal)
CPT/HCPCS: 76536

== ENCOUNTER 2021-04-07 22:22 | Emergency (ER) | payer OTHER, SELFPAY ==
[2021-04-07 22:24] VITALS: BP 119/89; PULSE 68; RESP 14; TEMP 36.9; O2SAT 100; BMI 31.3
--- NOTE | 2021-04-07 22:44 | CT_ITS ---
STUDY: CT ABDOMEN AND PELVIS WITHOUT CONTRAST REASON FOR EXAM: Female, 30 years old. Left flank pain RADIATION DOSAGE (If Supplied By Facility): CTDIvol = ( 16.96 ) mGy, DLP = ( 856.15 ) mGycm TECHNIQUE: Transaxial images were obtained from the dome of the diaphragm to the symphysis pubis without oral contrast, and without intravenous contrast. Sagittal and coronal images were reconstructed. Individualized dose optimization techniques were used for this CT. COMPARISON: Renal ultrasound 07/25/2017. FINDINGS: The visualized lung bases are unremarkable. The visualized portions of the heart are within normal limits. Normal liver. There are radiodense surgical sutures win the gallbladder fossa consistent with a prior cholecystectomy. Normal spleen. Normal pancreas. Normal bilateral adrenal glands. There is a 3.4 x 3 x 5.3 cm space occupying lesion protruding from the anterior upper pole of the right kidney, with attenuation of 24 HU. Finding is indeterminate for slightly hyperdense cyst versus complex cyst versus solid mass. A 2 cm right upper pole cyst was demonstrated on the 2016 ultrasound. Normal left kidney. There is a small hiatal hernia. Normal small intestine. There are multiple colonic diverticula consistent with diverticulosis. The appendix is visualized on axial images 104-125. There is no evidence for appendicitis.. Normal abdominal aorta. Normal inferior vena cava. Normal retroperitoneum. Normal urinary bladder. Normal abdominal wall. There are multilevel to joint CT/Abdomen/Pelvis without Cont IMPRESSION: 5.3 cm space occupying lesion in the upper pole the right kidney with indeterminate attenuation characteristics. Suggest renal ultrasound for further evaluation. Colonic diverticulosis, without evidence for acute diverticulitis. Previous cholecystectomy. No evidence for acute pathology. No demonstrated urinary calculi or hydronephrosis. Electronically Signed: Gm Garvin MD at 0:20 EDT , Service support ,
--- NOTE | 2021-04-07 22:51 | EX.ED.DYSGE1 ---
HPI History of Present Illness Chief Complaint: Flank Pain Informant: patient Narrative Narrative: Patient is a 30-year-old female who presents to the emergency department for left-sided flank pain. She states this has been intermittent since this past Tuesday. She currently rates the pain as a 6 out of 10. She states she has been drinking plenty of fluids which did seem to help. She did take ibuprofen earlier today. She has been nauseous with this. She has never had this pain before. She denies any change in moving bowels. No blood in the urine or dysuria. She denies any chest pain, shortness of breath. No fevers or chills. She does have a history of cholecystectomy. She states she is supposed to follow-up with urology tomorrow as she has a calcified cyst on the right side that they have been following for the past 4 years. The pain in the right flank does not radiate. She states that whenever she first gets up in the morning it seems to be worse whenever she moves out of bed. [facility] Medical History (Updated 04/08/21 @ 00:[address] Sj Rolon DO) Abdominal pain Abdominal pain, RUQ Anxiety neurosis Cystic disease of kidney History of ESBL E. coli infection Thyroid cancer Vertigo Home Medications biotin 1,000 mcg chewable tablet 1,000 mcg PO DAILY 12/11/20 [History Last Taken Unknown] cetirizine [Zyrtec] 10 mg PO DAILY 04/07/21 [History Last Taken Unknown] levothyroxine 150 mcg PO DAILY 04/07/21 [History Last Taken Unknown] sertraline 25 mg PO DAILY 04/07/21 [History Last Taken Unknown] Allergy/AdvReac Type Severity Reaction Status Date / Time No Known Allergies Allergy Verified 04/07/21 22:23 Family History Grandfather Cancer CVA (cerebral vascular accident) Diabetes Father Hypertension Grandmother Diabetes Surgical History H/O thumb surgery History of needle biopsy Hx laparoscopic cholecystectomy Previous back surgery (~2018) Social History adopted: No household members: spouse housing: house current occupational status: employed current occupation: [employer] pets and animals: Yes history of recent travel: No sexually active: Yes Smoking Status: Former smoker second hand exposure: Yes alcohol intake: current alcohol intake frequency: holidays/special occasions only substance use type: does not use seatbelt use: always do you feel safe at home: Yes additional social history: Jey Gonzalez (Lory-13 Radha-10) ROS ROS ED Constitutional Constitutional ED: Denies chills or fever(s) Eyes Eyes: Denies change in vision ENT ENT ED: Denies epistaxis or rhinorrhea Cardiovascular Cardiovascular: Denies chest pain or palpitations Respiratory/Chest Respiratory/Chest: Denies cough, dyspnea or dyspnea on exertion Gastrointestinal Gastrointestinal: Reports nausea; Denies abdominal pain, diarrhea or vomiting Genitourinary Genitourinary ED: Denies dysuria, hematuria or urinary frequency Musculoskeletal Musculoskeletal: Reports back pain; Denies neck pain Integumentary Denies rash Neurologic Neurologic: Denies dizziness, headache(s) or weakness EXAM Physical Exam Const Vital Signs: 04/07/21 22:24 04/08/21 00:44 Temperature 98.4 F Temperature Source Temporal Pulse Rate 68 72 Respiratory Rate 14 16 Blood Pressure 119/89 H Blood Pressure Mean 99 Pulse Ox 100 98 Oxygen Delivery Method Room Air Positive well nourished and well developed General Appearance ED: well developed and NAD HEENT Reports normocephalic and head/scalp atraumatic Eyes PERRL and EOMs intact bilaterally Neck supple Chest Wall inspection of chest normal Resp normal respiratory effort and clear to auscultation bilaterally Auscultation: Negative for rales, rhonchi or wheezes Cardio regular rate, regular rhythm and no murmurs GI normal to inspection, nondistended, normoactive bowel sounds and non-tender Palpation: soft; Negative for guarding or rebound tenderness present Back/Spine no CVA tenderness Extremity normal to inspection General Extremety ED: Negative for edema or tenderness General Extremity: Negative for edema Neuro no sensory deficits noted Sensorium / Orientation: alert Motor Exam: strength 5/5 throughout Psych mental status grossly normal Skin no rashes or lesions noted MDM MDM MDM Narrative Medical decision making narrative: Patient presents to the emergency department for left-sided flank pain. On arrival to the ED vital signs within normal limits. She is in no acute distress. Will check urinalysis as well as urine test. Will get CT scan abdomen/pelvis to evaluate for kidney stone. She is given a dose of Toradol and Zofran for symptomatic treatment. Patient's urinalysis did not reveal any evidence of infection or hematuria. CT scan did show the known right kidney cyst, I did update her on the size of this. After the dose of Toradol she is feeling much better. I do not feel like lab work is necessary at this time as she is feeling much better. This could be musculoskeletal as some certain positions seem to make it worse. The anti-inflammatory did help. I have low concern for acute intra-abdominal surgical pathology. She does have an appointment with urologist tomorrow. She is to follow-up with her PCP as well. Return precautions are reviewed with her including any worsening pain, developing systemic symptoms. She understands and is agreeable this plan. Discharged home in stable condition. All questions are answered. Lab Data Labs: Laboratory Results - last 24 hr 04/07/21 23:10 Urine Color Yellow Urine Clarity Clear Urine pH 6.5 Ur Specific [place] 1.010 Urine Protein Negative Urine Glucose (UA) Normal Urine Ketones Negative Urine Occult Blood Negative Urine Nitrite Negative Urine Bilirubin Negative Urine Urobilinogen Normal Ur Leukocyte Esterase Negative Urine RBC 0 SEEN Urine WBC 0 SEEN Ur Squamous Epith Cells 0 SEEN Urine Bacteria 0 SEEN Urine Mucus 0 SEEN Urine Test Negative Radiography Diagnostic Testing: Radiology Impression Abdomen/Pelvis CT 04/07/21 22:44 IMPRESSION: 5.3 cm space occupying lesion in the upper pole the right kidney with indeterminate attenuation characteristics. Suggest renal ultrasound for further evaluation. Colonic diverticulosis, without evidence for acute diverticulitis. Previous cholecystectomy. No evidence for acute pathology. No demonstrated urinary calculi or hydronephrosis. Electronically Signed: Gm Garvin MD at 0:20 EDT , Service support , Discharge Plan Triage Chief Complaint: Flank Pain ED Provider: Sj Rolon Dx/Rx/DC Orders Clinical Impression: Acute left flank pain Instructions: ED Flank Pain, Uncertain Cause Prescriptions: No Action biotin 1,000 mcg tablet,chewable 1,000 mcg PO DAILY RF: 0 levothyroxine 150 mcg tablet 150 mcg PO DAILY RF: 0 sertraline 25 mg tablet 25 mg PO DAILY RF: 0 Zyrtec 10 mg Tablet,Disintegrating 10 mg PO DAILY RF: 0 Primary Care Provider: Kailee Mahmood Referrals: Kailee Mahomod, OLIMPIA [Primary Care Provider] - Disposition Disposition: Home, Self Care Discharge Date/Time: 04/08/21 00:45
[2021-04-07] MEDS: Ondansetron ODT 4 MG Tablet PO (22:59)
[2021-04-07] MEDS: Ketorolac 30 MG/ML Syringe IM (23:00)
[2021-04-07 23:21] LABS: Bacteria 0 SEEN /hpf (None Seen); Mucous, Urine 0 SEEN /hpf (<or=2+); Red Blood Cells-Urine 0 SEEN /hpf (0-5); Squamous Epithelial Cells - UA 0 SEEN /hpf (5-10); White Blood Cells 0 SEEN /hpf (0-5)
[2021-04-07 23:25] LABS: Color, Urine Yellow (Yellow); Glucose, Dipstick Normal (Normal); Ketone-Dipstick Negative (Negative); Leukocyte Esterase-Dipstick Negative /ul (Negative); Nitrite-Dipstick Negative (Negative); Occult Blood-Urine Negative /ul (Negative); Protein-Dipstick Negative (Negative); Urine Bilirubin Dipstick Negative (Negative); Urine Clarity Clear (Clear); Urine Urobilinogen Normal (Normal); Urine pH 6.5 (5.0 - 8.0)
[2021-04-07 23:48] LABS: Internal QC Validated? YES +Cl - CLEAR BKGD; Pregnancy, Urine Negative Negative
[2021-04-08 00:44] VITALS: PULSE 72; RESP 16; O2SAT 98
--- NOTE | 2021-04-08 00:44 | ED.RN ---
THIS NURSE REVIEWED D/C INSTRUCTIONS WITH PT. PT VERBALIZED UNDERSTANDING OF INSTRUCTIONS. PT DENIES FURTHER NEEDS OR QUESTIONS AT THIS TIME
== END 2021-04-08 00:45 | disposition home or self-care (01) ==
PROVIDERS: Emergency Provider Emergency Medicine; PCP Physician Assistant Medical
DX: R10.9 Unspecified abdominal pain (principal); N28.1 Cyst of kidney, acquired; Z86.19 Personal history of other infectious and parasitic diseases; Z85.850 Personal history of malignant neoplasm of thyroid; Z87.891 Personal history of nicotine dependence
CPT/HCPCS: 74176; 81001; 81025; 96372; 99283

== ENCOUNTER 2021-10-22 16:32 | Outpatient (CLI) | payer OTHER, SELFPAY ==
--- NOTE | 2021-10-22 | EMB_PTH ---
PATIENT: SHANIQUA HILL LOC: [facility] U#:[id number] AGE/SX: 31/F ROOM: RE10/22/[address]: Dr. Alisia Dinh DO : 1990 BED: DIS: 10/22/2021 SPEC #: [id number] RECD: 10/22/21 15:20 STATUS: VALE LEE #: [id number] KIET: 10/22/21 00:[address]: Alisia Dinh DEPT: SURGICAL PATHOLOGY RECD BY: Kacie Steward ENTERED: 10/23/21 09:38 SP TYPE: ENDOM BX/C GIOVANYHR DR: OLIMPIA Cerda Tissues: Endometrium, NOS Procedures: Surgery Specimen Level IV HEADER OPERATION: Colposcopy PRE-OP DIAGNOSIS: HPV positive TISSUE SUBMITTED: ECC MICROSCOPIC DIAGNOSIS ECC: Scant fragments of benign endocervical epithelium, negative for dysplasia. SJ:kalen 10/26/2021 COMMENT Correlation with clinical findings and appropriate follow up are necessary. MICROSCOPIC DESCRIPTION Slides are reviewed. GROSS DESCRIPTION Received in fixative is one container labeled with the patient's name and designated ECC. The specimen consists of a scant amount of soft tissue. The specimen is totally submitted for cell block preparation. / MATT:kalen 10/23/2021 TC: 4 CPT: 38478
== END 2021-10-22 23:59 | disposition home or self-care (01) ==
LOC: LABSPEC 16:33
PROVIDERS: PCP Physician Assistant Medical; Visit Provider Obstetrics & Gynecology
DX: R87.810 Cervical high risk human papillomavirus (HPV) DNA test positive (principal)
CPT/HCPCS: 88305

== ENCOUNTER → 2022-11-09 | Outpatient (CLI) | payer OTHER, SELFPAY ==
[2022-11-17 14:54] LABS: HPV APTIMA, High Risk Negative (Negative)
== END | disposition home or self-care (01) ==
LOC: LABSPEC 13:19
PROVIDERS: PCP Physician Assistant Medical; Visit Provider Obstetrics & Gynecology
DX: Z01.419 Encounter for gynecological examination (general) (routine) without abnormal findings (principal)
CPT/HCPCS: 87624; 88175; G0145

== ENCOUNTER → 2023-12-23 | Outpatient (CLI) | payer OTHER, SELFPAY ==
[2023-12-23 11:47] LABS: AST(SGOT) 19 U/L (15-37); Alanine Aminotransfer ALT/SGPT 33 U/L (13-56); Albumin, Serum 3.8 g/dL (3.2-5.0); Alkaline Phosphatase 86 U/L (45-117); Anion Gap 2 (5-15); BUN 12 mg/dL (7-18); BUN/Creat Ratio 16.9 RATIO (10-20); Calcium,Total 8.6 mg/dL (8.5-10.1); Chloride 110 mmol/L (98-107); Cholesterol 200 mg/dL (200); Creatinine, Serum 0.71 mg/dL (0.55-1.02); EST Glomerular Filtration Rate 100 mL/min (>60); Est Glom Filt Rate - Afr Amer 121 mL/min (>60); Glucose 94 mg/dL (74-106); High Density Lipoprotein 50 mg/dL; Potassium 3.8 mmol/L (3.5-5.1); Protein, Total 7.8 g/dL (6.4-8.2); Sodium Level 140 mmol/L (136-145); Triglycerides 57 mg/dL; Very Low Density Lipoprotein 11 mg/dL (5-40)
[2023-12-23 11:48] LABS: Vitamin B12 643 pg/mL (211-911); Vitamin D,25 Hydroxy 28.4 ng/mL
[2023-12-28 21:07] LABS: HPV APTIMA, High Risk Negative (Negative)
[2023-12-29 15:59] LABS: HPV Reflexed? YES, CHARGE PATIENT
== END | disposition home or self-care (01) ==
LOC: PAVLAB 11:15
PROVIDERS: PCP Physician Assistant Medical; Referring Provider Obstetrics & Gynecology; Visit Provider Obstetrics & Gynecology
DX: Z12.4 Encounter for screening for malignant neoplasm of cervix (principal); C64.9 Malignant neoplasm of unspecified kidney, except renal pelvis; C73 Malignant neoplasm of thyroid gland; Z13.220 Encounter for screening for lipoid disorders; R53.83 Other fatigue; Z13.21 Encounter for screening for nutritional disorder
CPT/HCPCS: 36415; 80053; 80061; 82306; 82607; 87624; 88175; G0145

== ENCOUNTER → 2024-12-24 | Outpatient (CLI) | payer OTHER, SELFPAY ==
[2024-12-27 19:08] LABS: HPV APTIMA, High Risk Negative (Negative)
== END | disposition home or self-care (01) ==
LOC: LABSPEC 11:51
PROVIDERS: PCP Physician Assistant Medical; Referring Provider Obstetrics & Gynecology; Visit Provider Obstetrics & Gynecology
DX: Z12.4 Encounter for screening for malignant neoplasm of cervix (principal)
CPT/HCPCS: 87624; 88175; G0145